=== PATIENT | male | born 2000 | race Caucasian/White ===

== ENCOUNTER 2024-11-26 06:07 | Outpatient (CLI) | payer MEDICAID ==
[2024-11-26] MEDS ORDERED: LIDOcaine 1% 30ml preserv. free vial ONE (06:34)
[2024-11-26] MEDS ORDERED: LIDOcaine 1%/PF 5ML 10 MG/ML VIAL ONE (06:34)
[2024-11-26] MEDS ORDERED: iohexol 300 MG/1 ML 50ml polymer ONE (06:34)
[2024-11-26] MEDS ORDERED: GADOTERATE MEGLUMINE 7.5 MMOL/15 ML VIAL IV ONE (06:34)
== END 2024-11-26 23:59 | disposition home or self-care (01) ==
LOC: MRI 06:07
PROVIDERS: ATTEND Pediatrics Sports Medicine
DX: M25.512 Pain in left shoulder (principal); M75.42 Impingement syndrome of left shoulder
CPT/HCPCS: 23350; 73222; 77002; A9575; J2003; J3490; Q9967

== ENCOUNTER 2025-02-24 12:37 | Outpatient (CLI) | payer MEDICAID ==
--- NOTE | 2025-02-24 14:17 | RADIOLOGY REPORT ---
CLINICAL INDICATION: RIGHT ANKLE PAIN TECHNIQUE: 3 radiographic views of the right ankle were obtained. Comparison: None FINDINGS/IMPRESSION: There is no evidence of acute fracture or dislocation. The visualized joint space is well maintained. The alignment is anatomical. There is no radiopaque foreign body.
== END 2025-02-24 23:59 | disposition home or self-care (01) ==
LOC: RAD 12:37
PROVIDERS: ATTEND Family Medicine
DX: M25.571 Pain in right ankle and joints of right foot (principal)
CPT/HCPCS: 73610